=== PATIENT | male | born 1995 | race Caucasian/White ===

== ENCOUNTER 2022-03-26 02:58 | Day surgery (SDC) | payer BC, SELFPAY ==
[2022-03-24 08:56] VITALS: BMI 25.9
--- NOTE | 2022-03-24 09:09 | PC.NURSE ---
Report to the Outpatient Waiting Room, entrance under the green pavilion located off [facility], at time __6:00AM on date __03/26/22 . OR Time: __7:30AM . - You and your visitor will be asked a series of questions to screen for COVID 19 for your protection. - Only one visitor is allowed at this time. - The patient visitor is requested to leave or wait in car when not with patient. - A mask is required within the hospital. Patients may have clear liquids (water, carbonated beverages, clear teas, apple juice) until 3 hours prior to surgery with a maximum of 20 ounces. - No food from midnight until time of surgery - Infants may have breast milk until 4 hours before surgery, formula 6 hours prior to surgery. - Children will be allowed to drink immediately following surgery. If applicable, please bring a bottle or sippy cup to assist with drinking. Juice, water, soda, and popsicles are readily available. For infants on formula, please bring formula the day of surgery. Pacifiers are allowed. Take the following medications with a SIP of water the morning of surgery: ___ALBUTEROL INHALER NEEDED Medications to discontinue per physician NONE Date to take last dose Please no make-up, nail georgian, hairspray, perfume, deodorant, or body powder the day of surgery. No jewelry (including any body piercings) or valuables the day of surgery, leave them at home. Please take a shower or bath the night before, or the morning of, surgery with an antibacterial soap. Wear comfortable, loose fitting clothing. Children are encouraged to wear pajamas. - Jewelry must be removed prior to entering the operating room. Rings and piercings that are not removed may be cut off. - The hospital will not accept responsibility for valuables. - Please leave all valuables, including medications, at home the day of surgery. If you are going home after surgery, a licensed gravel truck driver must drive you home. - NO public transportation without another adult. - We recommend that an adult stay with you for 24 hours following discharge. - We also recommend that you do not drive, make important decision, drink alcoholic beverages, or take any drugs that were not prescribed by your health care provider for at least 24 hours after your discharge time. For Pediatric surgeries, we recommend two adults accompany the child home (only one inside the building at this time). Follow any additional instructions given to you from your surgeon. If you or anyone in your household have experienced Covid symptoms in the past week, please notify your surgeon or the nurse liaison at the phone number below for possible testing. Telephone instructions given to ___PATIENT and asked if any additional questions and then verbalized understanding. Patient advised to call surgeon office or pre surgery nurse liaison [phone] if any additional questions.
--- NOTE | 2022-03-25 11:57 | PM.SD2 ---
Same Day Admit/Disch: HPI History of Present Illness Chief complaint: left inguinal hernia Narrative: Nelson Garner is a 26 year old male who noticed a bulge in the left groin for a couple of months now. He has had some sharp pain there when he coughs. He has been holding off on exercising due to concerns over pain or worsening of the hernia. He was seen in the office and found to have a left inguinal hernia. He is taken to surgery now for left inguinal hernia repair. [facility] Past Medical History Medical History (Updated 02/17/22 @ 15:02 by Astrid Ahuja) Asthma Surgical History Surgical History History of tonsillectomy Family History Family History Mother Patient's mother is in good health Father Patient's father is in good health Social History Social History Smoking status: Never smoker Alcohol intake: current Drinks per week: 1 Alcohol use details: Socially Substance use: never Substance use type: does not use Living arrangements: other Additional living arrangements comments: S.O. Additional occupation/education comments: [employer] Spiritual care concerns: No Same Day Admit/Disch: Med Pre-admit Medications Home Medications Medication Instructions Recorded Confirmed Type albuterol sulfate 90 mcg/actuation 1 puff inhalation Q4H PRN 02/03/22 03/26/22 History aerosol inhaler Shortness Of Breath montelukast 10 mg tablet 10 mg PO HS 02/03/22 03/26/22 History hydrocodone 5 mg-acetaminophen 325 1 - 2 tablet PO Q6H PRN pain #12 03/26/22 Rx mg tablet tabs ketorolac 10 mg tablet 10 mg PO Q6H 4 days #16 tabs 03/26/22 Rx Exam Const: General: comfortable, no acute distress, alert and awake HENMT: Head: normocephalic and atraumatic Mouth: Yes Normal oral and palatal mucosa present Eyes: Conjunctivae: conjunctivae normal Pupils: Equal, round and reactive pupils present EOM: EOMs intact bilaterally Neck: Neck: normal visual inspection, no lymphadenopathy and nontender Resp: Effort & Inspection: normal respiratory effort Auscultation: clear to auscultation bilaterally Cardio: Rate: regular rate Rhythm: regular rhythm Heart sounds: no gallops, no murmurs and no rubs GI: Inspection: non-distended GI Palp: Yes Soft to palpation, No Tenderness to palpation present (GI), No Hepatomegaly present and No Splenomegaly present : Male General Exam: Yes hernia ( Left inguinal hernia, bulges with cough, reducible) Penis: Yes normal penis Scrotum: scrotum normal Testes: Testes normal Skin: Lesions: no lesions Rashes: no rashes Neuro: General: no focal motor deficits and CN's II-XI intact bilaterally Cranial nerves: Yes Equal, round and reactive pupils present, Yes Bilaterally intact EOM present, Yes facial symmetry and Yes Midline tongue present Speech: normal speech Motor exam (neuro): 5/5 motor strength present throughout and Motor abnormalities not present Extrem: General: no clubbing, cyanosis or edema and edema Psych: Affect: normal affect Thought process: Normal thought process present Insight: Good insight present (Psych) DS: Summary Time Spent with Patient Time attestation: Total time spent providing and/or coordinating discharge services: DS: Admitting Diagnosis Discharge Date 03/26/2022 Admitting Diagnosis symptomatic reducible left inguinal hernia -plan to proceed with outpatient repair under anesthesia. The procedure the risks the benefits have been discussed with the patient. The usual recovery and time off work of been discussed. The use of mesh has been discussed. All questions were answered. He understands and agrees to go ahead. Asthma-chronic Discharge Plan Discharge Patient Disposition: Home, Self-Care Discharge Instructions: 1. May shower the day after surg
--- NOTE | 2022-03-25 14:30 | WPDANESEPPF ---
Anes - Initial Pre Proc Eval Procedure: Operation Date: 03/26/22 07:30 Proposed Procedures p Left Inguinal Hernia Repair - Trev Navas MD Date/Time: 03/25/22 14:30 Surgeon: Trev Navas MD Pre Op Diagnosis: left inguinal hernia Patient Data Age: 26 Gender: M Height: 1.83 m Weight: 87 kg Allergies Allergy/AdvReac Type Severity Reaction Status Date / Time No Known Allergies Allergy Mild Verified 03/26/22 06:09 Home Medications Medication Instructions Recorded Confirmed Type albuterol sulfate 90 mcg/actuation 1 puff inhalation Q4H PRN 02/03/22 03/26/22 History aerosol inhaler Shortness Of Breath montelukast 10 mg tablet 10 mg PO HS 02/03/22 03/26/22 History Patient hx anesthesia problems: none Family hx anesthesia problems: none Results Review: All pre-operative results and documents have been reviewed as part of the pre-operative evaluation. [facility] Past Medical History Medical History (Updated 02/17/22 @ 15:02 by Astrid Ahuja) Asthma Surgical History Surgical History History of tonsillectomy Family History Family History Mother Patient's mother is in good health Father Patient's father is in good health Social History Social History Smoking status: Never smoker Alcohol intake: current Drinks per week: 1 Alcohol use details: Socially Substance use: never Substance use type: does not use Living arrangements: other Additional living arrangements comments: S.O. Additional occupation/education comments: [employer] care concerns: No Anes - Eval Final PreProcedure Day of Procedure 03/25/22 14:30 Patient weight: normal Heart: regular rate and rhythm Lungs: clear to auscultation Airway: Mallampati scale class II Neurological: alert and oriented Last oral intake: >/= 8 hours ASA classification: II Emergent: no Anesthetic plan: proceed Anesthesia type and monitoring: general GIVS and standard monitoring Results Review: All pre-operative results and documents have been reviewed as part of the pre-operative evaluation. Informed Consent: The patient's anesthetic plan and its attendant risks and benefits were discussed with the patient/family/POA. Questions were solicited and answers provided to the satisfaction of the patient/family/POA.
[2022-03-26] MEDS: ACETAMINOPHEN 500 MG TABLET 1000 MG PO (06:12)
[2022-03-26] MEDS: LACTATED RINGERS 1,000 ML 30 ML IV CONT ×2 (06:29→09:00)
[2022-03-26] MEDS: KETOROLAC 15 MG/ML VIAL (*BKC) IV PUSH (06:31)
[2022-03-26 06:44] VITALS: BP 114/73; PULSE 64; RESP 16; TEMP 36.8; O2SAT 100
--- NOTE | 2022-03-26 07:12 | WPDHPUPDATE1 ---
History and Physical Update Update Date/Time: 03/26/22 07:12 History and Physical has been reviewed, including an updated exam of the patient. There are NO changes in the patient's condition. Risks, benefits, and alternatives have been discussed and questions answered. Patient agrees to proceed with procedure.
[2022-03-26] MEDS: ceFAZolin 2 GM/D5W 50 ML 2 GM/50 ML BAG IVPB (07:20)
[2022-03-26] MEDS: LIDO 1%/EPINEPHRINE/PF 1:200,000 30 ML VIAL XX (07:41)
[2022-03-26 08:46] VITALS: BP 88/44; PULSE 56; RESP 14; O2SAT 100
[2022-03-26 08:50] VITALS: BP 85/49; PULSE 45; RESP 14; O2SAT 99
--- NOTE | 2022-03-26 09:01 | P.OP_ITS ---
Procedure Note - Detailed Date of Procedure 03/26/22 Pre-op Diagnosis left inguinal hernia Post-op Diagnosis Same Procedure Performed Left inguinal hernia repair with large PerFix Light plug and patch Surgeon Trev Navas MD [employer] Darrius GARZA Anesthesia General (G IV S), Local (1% lidocaine with epinephrine) and Other (Xaracoll) Indications Patient noticed a left inguinal bulge that pulses with cough. It is occasionally painful. He is taken to surgery now for left inguinal hernia repair Findings Small indirect left inguinal hernia Description of Procedure Patient was taken to surgery and placed in a supine position. Anesthesia was introduced and the left groin and genitalia were prepped and draped. The proposed incision was marked on the skin in the left inguinal region. Local anesthesia was infiltrated in the area of the anticipated incision and in the deeper subcutaneous tissues. Incision was made and dissection was carried down through the subcutaneous. Crossing veins were cauterized and divided. Dissection was carried down to the external oblique aponeurosis. The aponeurosis was exposed as was the external ring. Additional local was infiltrated deep to the aponeurosis. Aponeurosis was then opened laterally and extended medially through the external ring. The leaves of the aponeurosis were freed from the underlying spermatic cord and inguinal canal contents. The cord was then mobilized medially on a [place] drain. The cord was further mobilized back to the internal ring. The ilioinguinal nerve was dissected and kept with the spermatic cord. It was avoided throughout the surgery and was not injured. Dissection was carried out in the anteromedial aspect of the cord. There was a lipoma the cord which was dissected free from the hernia sac. The lipoma was amputated at the internal ring. The hernia sac was dissected back to a high dissection. During the dissection, the inferior epigastric artery was injured. It was doubly clamped divided and ligated with 3-0 Vicryl ties. The hernia sac was dunked into the retroperitoneum. The large PerFix plug was placed in the defect. The edges were sutured to the transversalis fascia with interrupted 3-0 Vicryl suture. A patch was then cut to the appropriate size and placed over the inguinal canal floor. The lateral leaves passed beyond the cord. The 1st pieces Xaracoll was laid over the patch. The cord was then laid over the Xaracoll. The external oblique was then closed with interrupted 3-0 Vicryl suture. The 2nd piece of Xaracoll was placed over the external oblique a poneurosis. Mamie's fascia was closed with interrupted 3-0 Vicryl suture. The last piece of Xaracoll was then placed in the subcutaneous. The skin was loosely approximated with subcuticular interrupted 4-0 Vicryl suture. Skin was finally closed with a running 4-0 Monocryl skin suture. The wound was dressed with Exofin surgical adhesive. The patient was then awakened and taken to recovery in good condition. Sponge needle counts were correct x2. Implants Large PerFix Light plug and patch, Xaracoll Estimated Blood Loss -5.0 Drains No Packing No Pathology None sent Complications No immediate complications Condition Stable Disposition Same day [facility] Billing Surgery - Charge Forward: Surgery Billing (Left inguinal hernia repair)
[2022-03-26 09:20] VITALS: BP 100/55; PULSE 45; RESP 16
[2022-03-26 09:50] VITALS: BP 109/71; PULSE 49; RESP 16
[2022-03-26 10:15] VITALS: BP 113/68; PULSE 45; RESP 16
== END 2022-03-26 10:27 | disposition home or self-care (01) ==
PROVIDERS: PCP Physician Assistant; Visit Provider Surgery
PROC: (CPT 49505; principal; 2022-03-26 07:30)
DX: K40.90 Unilateral inguinal hernia, without obstruction or gangrene, not specified as recurrent (principal); J45.909 Unspecified asthma, uncomplicated; Z79.51 Long term (current) use of inhaled steroids
CPT/HCPCS: 49505; A9270; C1781; J0690; J1100; J1170; J1885; J2250; J2405; J2704; J3010; J7120